=== PATIENT | female | born 1980 | race Two or more races ===

== ENCOUNTER → 2020-07-03 | Outpatient (CLI) | payer SELFPAY | LOC: LAB 12:26 | PROVIDERS: ATTEND Obstetrics & Gynecology | DX: Z01.812 Encounter for preprocedural laboratory examination (principal); Z20.828 Contact with and (suspected) exposure to other viral communicable diseases | CPT/HCPCS: U0003 ==

== ENCOUNTER 2020-07-06 10:44 | Inpatient (IN) | payer SELFPAY ==
[~2020-07-06] VITALS: Ht 154.9 cm; Wt 23.3 kg
[2020-07-06] MEDS: IV RINGERS,LACTATED 1000ML 1,000 ML IV SCH ×2 (11:00→12:00)
[2020-07-06] MEDS: IV NORMAL SALINE 1000ML BAG 1,000 ML IV SCH ×2 (11:43→19:43)
[2020-07-06] MEDS ORDERED: CITRIC ACID/SODIUM CITRATE 30 ML SOLUTION. PO ONE (12:00)
[2020-07-06 12:05] LABS: HEMATOCRIT 37.7 % (36.0-47.0); HEMOGLOBIN 12.8 g/dL (12.0-15.5); RED BLOOD COUNT 4.1 x10^6/uL (3.50-5.40); RED CELL DISTRIBUTION WIDTH 14.8 % (11.5-14.5); WHITE BLOOD COUNT 6.6 x10^3/uL (4.0-11.0)
--- NOTE | 2020-07-06 12:07 | PDOC1 ---
[facility] H&P Date of Admission: Date of Admission: Jul 06, 2020 at 10:44 History of Present Illness: EDC: 07/11/20 LMP: 10/05/19 40y @ 39.2 by L=19 presents for scheduled C/S. The pt was found to have gestational DM. Her FSBS have been well controlled with diet alone. 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 She has been getting wkly CBC since 36wks. Her Plt with her initial OB labs was 125 (01/02/20). The repeat with her GTT was 102 (04/02/20). Over the last few wks they have remained above 80; 89 (06/14/20) -> 98 (06/21/20) -> 83 (06/28/20). PMH: Denies PSH: C/S x 2 Meds: PNV, ASA, pepcid All: NKDA OBHx: 30wk x 1, followed by TC/S x 2 SH: no tob, no EtOH FH: noncontributory Allergies: Coded Allergies: No Known Drug Allergies (Unverified , 07/06/20) Physical Exam: Vital Signs: FHT: 150s +acels/no decels/mLTV Mulat: 8-10 min PE: GENERAL: No apparent distress. Alert and oriented. HEENT: Head normocephalic, atraumatic. NECK: Supple LUNGS: Clear to auscultation. HEART: RRR, S1, S2 present, pulses intact ABDOMEN: Soft, positive bowel sounds. EXTREMITIES: No cyanosis or edema. NEUROLOGIC: Normal speech, normal tone PSYCHIATRIC: Normal affect, normal mood. SKIN: No ulceration. 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
[2020-07-06 13:04] LABS: BILIRUBIN,URINE NEGATIVE (NEG); CLARITY,URINE CLEAR; COLOR,URINE YELLOW; NITRITE,URINE NEGATIVE (NEG); PROTEIN,URINE NEGATIVE (NEG-TRACE); UROBILINOGEN,URINE 0.2 mg/dL (0.2 mg/dL)
[2020-07-06] MEDS ORDERED: MORPHINE PF 10 MG/10 ML AMPUL. ONE (13:09)
[2020-07-06] MEDS ORDERED: fentaNYL PF VIAL 100 MCG/2 ML VIAL ONE (13:10)
[2020-07-06] MEDS ORDERED: OXYTOCIN 10 UNIT/ML VIAL. ONE ×4 (13:10→13:55)
[2020-07-06] MEDS ORDERED: DEXTROSE 50% 25 GM / 50ML DISP.SYRIN. IV ONE ×2 (13:12→13:15)
[2020-07-06] MEDS ORDERED: FAMOTIDINE 20 MG/2 ML VIAL ONE (13:13)
[2020-07-06] MEDS ORDERED: PHENYLEPHRINE in 0.9% NACL PF 1 MG/10 ML SYRINGE. IV ONE (13:13)
[2020-07-06] MEDS ORDERED: ONDANSETRON PF 4 MG/2 ML VIAL. ONE (13:13)
[2020-07-06] MEDS ORDERED: ePHEDrine PF IN SALINE 50 MG/10 ML SYRINGE. IV ONE (13:13)
[2020-07-06 13:20] LABS: BACTERIA,URINE MANY /HPF (0-FEW); RBC,URINE OCC /HPF (0-2)
--- NOTE | 2020-07-06 14:54 | PDOC4 ---
OPERATIVE NOTE: PreOp Dx: 1.) IUP @ 39.2 by L=19, 2.) Prev C/S x 2, 3.) AMA NIPT neg, 4.) A1DM, 5.) Thrombocytopenia likely ITP, 6.) H/o PTD, 7.) Martha NI, 8.) GERD, 9.) GBS neg, 10.) formen ovale anyeurysm, 11.) DPS PostOp Dx: same Procedure: RLTCS/BTL Surgeon: Francis Lindsey Anesthesia: Spinal EBL: 700 cc Fluids: 1700 cc UOP: 200 cc Complications: None Findings: viable male infant delivered at 1355. Wt 9lb 4.6oz. APGARS 9/9. Nml tubes and ovaries. Path: Cord blood, bilateral tubal segments JEFFRY LINDSEY MD Jul 06, 2020 14:54
[2020-07-06] MEDS ORDERED: ACETAMINOPHEN 325 MG TABLET. PO PRN (15:15)
[2020-07-06] MEDS ORDERED: TDaP (Adacel) per PROTOCOL. MC PRN (15:15)
[2020-07-06] MEDS ORDERED: BENZOCAINE 20% TOPICAL AEROSOL SPRAY 57GM CAN. TP PRN (15:15)
[2020-07-06] MEDS ORDERED: diphenhydrAMINE ORAL ELIXIR 12.5 MG/5 ML ML PO PRN (15:15)
[2020-07-06] MEDS ORDERED: oxyCODONE/APAP 5/325 1 TAB TABLET PO PRN (15:15)
[2020-07-06] MEDS ORDERED: 0.9 % SODIUM CHLORIDE 10 ML DISP.SYRIN. IV PRN (15:15)
[2020-07-06] MEDS ORDERED: MMR per PROTOCOL. MC PRN (15:15)
[2020-07-06] MEDS ORDERED: OXYTOCIN 30 UNIT/500 ML PREMIX 500 ML IV PRN (15:15)
--- NOTE | 2020-07-06 15:31 | OP ---
DATE OF SURGERY: 07/06/2020 PREOPERATIVE DIAGNOSES: 1. Intrauterine at 39 weeks and 2 days by LMP equal to a 19-week ultrasound. 2. Previous section x 2. 3. Advanced maternal age. 4. A1 diabetes. 5. Thrombocytopenia, likely idiopathic thrombocytopenic purpura. 6. History of delivery. 7. Varicella nonimmune. 8. Gastroesophageal reflux disease. 9. GBS negative. 10. 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 11. Desires permanent sterilization. POSTOPERATIVE DIAGNOSES: 1. Intrauterine at 39 weeks and 2 days by LMP equal to a 19-week ultrasound. 2. Previous section x 2. 3. Advanced maternal age. 4. A1 diabetes. 5. Thrombocytopenia, likely idiopathic thrombocytopenic purpura. 6. History of delivery. 7. Varicella nonimmune. 8. Gastroesophageal reflux disease. 9. GBS negative. 10. 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 11. Desires permanent sterilization. PROCEDURE: Repeat low transverse with bilateral tubal ligation. SURGEON: Juvencio Lindsey MD ANESTHESIA: Spinal. ESTIMATED BLOOD LOSS: 900 mL. FLUIDS: 1500 mL. URINE OUTPUT: 250 mL. COMPLICATIONS: None. FINDINGS: Viable male delivered at 1355 hours, weighing 9 pounds 4.6 ounces with Apgars of 9 and 9. Normal tubes and ovaries noted with the left fimbria attached to the lower uterine segment from a thin adhesion. PATHOLOGY: Cord blood, cord ABG, bilateral tubal segments and placenta. DESCRIPTION OF PROCEDURE: The patient was taken to the operating room where spinal anesthesia was placed without difficulty. The patient was prepped and draped in normal sterile fashion with a left lateral tilt. A Pfannenstiel skin incision was made through her previous incision and carried down to underlying layer of fascia. The fascia was then nicked in the midline. The fascial incision was then extended laterally with Sierra scissors. The superior aspect of fascial incision was then grasped with Kaitlyn clamps, elevated and underlying rectus muscle was dissected off with the scalpel. Attention was then turned to the inferior aspect of fascial incision, which was grasped with Kaitlyn clamps, elevated and underlying rectus muscle was dissected off with Sierra scissors. At that point, the midline of the rectus muscle was identified and to allow for identification of the peritoneum. The peritoneum was then grasped with 2 hemostats and tented up. Metzenbaum scissors were used to enter sharply. Digital examination of the peritoneal cavity revealed minimal adhesions. At that point, the peritoneal incision was then extended superiorly and inferiorly with good visualization of the bladder with traction and countertraction. The Ervin ring was then placed into the abdomen to better visualize the lower uterine segment. Visualization of the lower uterine segment revealed that the left tube's fimbria was attached to the lower uterine segment near the position where you would make the bladder flap. This was then taken down sharply with Metzenbaum scissors. At that point, Metzenbaum scissors were used to create a bladder flap. The lower uterine segment was then incised in transverse fashion with the scalpel. Head was then flexed and brought to the hysterotomy. With fundal pressure, the head could not be delivered. At that point, attempt was made with the vacuum to deliver the head, the vacuum then popped off. It was felt that additional fundal pressure would have more benefit in the delivery of the head over additional attempts with the vacuum, so the vacuum was abandoned. With the additional fundal pressure, the 's head was delivered. The rest of the was then delivered atraumatically. The nose and mouth were bulb suctioned. The cord was double clamped and cut and the was handed over to the awaiting program consultant. The placenta was then removed manually and the uterus was cleared of all clots and debris. Uterine incision was then repaired with #1 chromic in a running locked fashion. A second layer of the same suture was used to imbricate. Good hemostasis was noted. At that point, the uterus was exteriorized and her left tube was then identified and followed out to the fimbria. At that point, the tube was then grasped with a Jojo clamp. An opening was created in the avascular portion of the mesosalpinx. Two free ties of 0 plain gut were then used to ligate the tube. This 2 cm portion of the tube was then excised and sent to pathology. The edges were made hemostatic with the Bovie. Attention was then turned to the right tube, which was followed out to the fimbria. The Buffalo clamp was then placed on the tube and the Bovie was used to create an opening in the avascular space of the mesosalpinx. At that point, two free ties of plain gut were then used to ligate the tube. This 2 cm segment of the tube was then excised and sent to pathology. The tube was then made hemostatic with the Bovie. At that point, the uterus was returned to the abdomen. Good hemostasis was noted. The gutters were copiously irrigated and cleared of all clots and debris. Reexamination of the tubal sites revealed hemostasis. At that point, the peritoneum was then closed with 2-0 Vicryl in a running fashion. The muscle was reapproximated with 2-0 Vicryl in a running fashion. The fascia was then closed with 0 Vicryl in a running fashion. The skin was then closed with 3-0 Monocryl in a subcuticular manner. The patient tolerated the procedure well. Sponges, laps, and needles were correct x 3. Two grams of Ancef were given prior to the procedure. The patient was taken to recovery room in stable condition. JUVENCIO LINDSEY MD DR: MARYBEL/july JOB#: [id number] / [id number] MOON
[2020-07-06] MEDS: FERROUS SULFATE 325 MG TABLET. PO SCH (17:00)
[2020-07-06 17:55] VITALS: BP 110/68
[2020-07-06] MEDS: KETOROLAC 30 MG/ML VIAL. IV PRN (18:04)
[2020-07-06 18:25] VITALS: BP 103/67
[2020-07-07] MEDS ORDERED: ONDANSETRON PF 4 MG/2 ML VIAL. IVP PRN (01:45)
[2020-07-07] MEDS: KETOROLAC 30 MG/ML VIAL. IV PRN (01:50)
[2020-07-07] MEDS: IV RINGERS,LACTATED 1000ML 1,000 ML IV SCH (01:53)
[2020-07-07] MEDS: IV NORMAL SALINE 1000ML BAG 1,000 ML IV SCH (03:43)
[2020-07-07 07:00] VITALS: BP 97/56
[2020-07-07 07:06] LABS: HEMATOCRIT 27.7 % (36.0-47.0); HEMOGLOBIN 9.2 g/dL (12.0-15.5); MEAN CORPUSCULAR HEMOGLOBIN 30 pg (25-35); MEAN CORPUSCULAR HGB CONC 33 g/dL (31-37); MEAN CORPUSCULAR VOLUME 91 fL (79-100); PLATELET COUNT 75 x10^3/uL (140-400); RED BLOOD COUNT 3.03 x10^6/uL (3.50-5.40); RED CELL DISTRIBUTION WIDTH 15.4 % (11.5-14.5); WHITE BLOOD COUNT 6.6 x10^3/uL (4.0-11.0)
[2020-07-07 07:40] LABS: PLT ESTIMATE DECREASED (ADEQUATE)
[2020-07-07] MEDS ORDERED: PRENATAL MULTIVITAMIN TABLET. PO SCH (09:00)
--- NOTE | 2020-07-07 09:43 | PDOC ---
[employer] PROGRESS NOTE Date of Service: DATE: 07/07/20 TIME: 09:39 Subjective: Pt with good pain control. Tuan PO. Voiding. Minimal lochia. Objective: Vital Signs: Vital Signs Date Time Temp Pulse Resp B/P (MAP) Pulse Ox O2 Delivery O2 Flow Rate FiO2 07/06/20 17:50 Room Air 07/06/20 17:55 98.0 75 16 110/68 (82) 100 98.0 Vital Signs Date Time Temp Pulse Resp B/P (MAP) Pulse Ox O2 Delivery O2 Flow Rate FiO2 07/07/20 07:00 97.5 69 16 97/56 (70) 99 Room Air 97.5 69 Labs: Laboratory Tests Test 07/06/20 11:30 07/06/20 11:32 07/06/20 13:08 07/06/20 15:33 Urine Collection Type Unknown Urine Color Yellow Urine Clarity Clear Urine pH 7.0 (<5.0-8.0) Urine Specific [place] 1.010 (1.000-1.030) Urine Protein Negative mg/dL (NEG-TRACE) Urine Glucose (UA) Negative mg/dL (NEG) Urine Ketones (Stick) Negative mg/dL (NEG) Urine Blood Negative (NEG) Urine Nitrite Negative (NEG) Urine Bilirubin Negative (NEG) Urine Urobilinogen Dipstick 0.2 mg/dL (0.2 mg/dL) Urine Leukocyte Esterase Small (NEG) Urine RBC Occ /HPF (0-2) Urine WBC 11-20 /HPF (0-4) Urine Squamous Epithelial Cells Many /LPF Urine Bacteria Many /HPF (0-FEW) White Blood Count 6.6 x10^3/uL (4.0-11.0) Red Blood Count 4.10 x10^6/uL (3.50-5.40) Hemoglobin 12.8 g/dL (12.0-15.5) Hematocrit 37.7 % (36.0-47.0) Mean Corpuscular Volume 92 fL (79-100) Mean Corpuscular Hemoglobin 31 pg (25-35) Mean Corpuscular Hemoglobin Concent 34 g/dL (31-37) Red Cell Distribution Width 14.8 % (11.5-14.5) H Platelet Count 73 x10^3/uL (140-400) L Treponema pallidum Antibody Nonreactive (Nonreactive) Glucose (Fingerstick) 56 mg/dL (70-99) L 70 mg/dL (70-99) Test 07/07/20 06:25 07/07/20 06:45 Glucose (Fingerstick) 77 mg/dL (70-99) White Blood Count 6.6 x10^3/uL (4.0-11.0) Red Blood Count 3.03 x10^6/uL (3.50-5.40) L Hemoglobin 9.2 g/dL (12.0-15.5) L Hematocrit 27.7 % (36.0-47.0) L Mean Corpuscular Volume 91 fL (79-100) Mean Corpuscular Hemoglobin 30 pg (25-35) Mean Corpuscular Hemoglobin Concent 33 g/dL (31-37) Red Cell Distribution Width 15.4 % (11.5-14.5) H Platelet Count 75 x10^3/uL (140-400) L Platelet Estimate Decreased (ADEQUATE) Giant Platelets Present Laboratory Tests 07/06/20 11:32 07/07/20 06:45 Laboratory Tests 07/07/20 06:45 Physical Exam: GENERAL: No apparent distress. Alert and oriented. HEENT: Head normocephalic, atraumatic. NECK: Supple LUNGS: Clear to auscultation. HEART: RRR, S1, S2 present, pulses intact ABDOMEN: Soft, positive bowel sounds. EXTREMITIES: No cyanosis or edema. NEUROLOGIC: Normal speech, normal tone PSYCHIATRIC: Normal affect, normal mood. SKIN: No ulceration. 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
[2020-07-07 11:00] VITALS: BP 82/52
[2020-07-07] MEDS: FERROUS SULFATE 325 MG TABLET. PO SCH ×2 (11:40→17:59)
[2020-07-07] MEDS: MULTIVITAMIN with MINERAL TABLET. PO SCH (11:41)
[2020-07-07] MEDS: oxyCODONE/APAP 5/325 1 TAB TABLET PO PRN ×2 (11:41→18:00)
[2020-07-07] MEDS: IBUPROFEN 400 MG TABLET. PO PRN ×2 (11:41→20:44)
[2020-07-07] MEDS: DOCUSATE SODIUM 100 MG CAPSULE. PO PRN ×2 (11:42→17:59)
[2020-07-07 15:00] VITALS: BP 91/46
[2020-07-07 20:46] VITALS: BP 94/60
[2020-07-07 20:52] VITALS: BP 94/60
[2020-07-08] MEDS: oxyCODONE/APAP 5/325 1 TAB TABLET PO PRN ×3 (02:44→12:46)
[2020-07-08 03:05] VITALS: BP 91/54
[2020-07-08] MEDS: IBUPROFEN 400 MG TABLET. PO PRN ×2 (06:21→12:46)
[2020-07-08 06:24] VITALS: BP 99/63
[2020-07-08 07:28] LABS: HEMATOCRIT 29.6 % (36.0-47.0); HEMOGLOBIN 9.9 g/dL (12.0-15.5); RED BLOOD COUNT 3.18 x10^6/uL (3.50-5.40); RED CELL DISTRIBUTION WIDTH 15.7 % (11.5-14.5); WHITE BLOOD COUNT 6.8 x10^3/uL (4.0-11.0)
[2020-07-08] MEDS: MULTIVITAMIN with MINERAL TABLET. PO SCH (08:38)
[2020-07-08] MEDS: DOCUSATE SODIUM 100 MG CAPSULE. PO PRN (08:38)
[2020-07-08] MEDS: FERROUS SULFATE 325 MG TABLET. PO SCH (08:38)
[2020-07-08] MEDS ORDERED: FLU VACC QS 2020-21(6MOS+)/PF 0.5 ML SYRINGE. VAX IM ONE (09:00)
--- NOTE | 2020-07-08 10:47 | PDOC ---
[employer] PROGRESS NOTE Date of Service: DATE: 07/08/20 TIME: 10:45 Subjective: Pt with good pain control. Tuan PO. Voiding. Minimal lochia. Objective: Vital Signs: Vital Signs Date Time Temp Pulse Resp B/P (MAP) Pulse Ox O2 Delivery O2 Flow Rate FiO2 07/07/20 07:00 97.5 69 16 97/56 (70) 99 Room Air 97.5 69 Vital Signs Date Time Temp Pulse Resp B/P (MAP) Pulse Ox O2 Delivery O2 Flow Rate FiO2 07/08/20 08:39 16 Room Air 07/08/20 06:24 98.3 65 99/63 (75) 96 98.3 Labs: Laboratory Tests Test 07/08/20 06:35 White Blood Count 6.8 x10^3/uL (4.0-11.0) Red Blood Count 3.18 x10^6/uL (3.50-5.40) L Hemoglobin 9.9 g/dL (12.0-15.5) L Hematocrit 29.6 % (36.0-47.0) L Mean Corpuscular Volume 93 fL (79-100) Mean Corpuscular Hemoglobin 31 pg (25-35) Mean Corpuscular Hemoglobin Concent 33 g/dL (31-37) Red Cell Distribution Width 15.7 % (11.5-14.5) H Platelet Count 82 x10^3/uL (140-400) L Laboratory Tests 07/08/20 06:35 Laboratory Tests 07/08/20 06:35 Physical Exam: GENERAL: No apparent distress. Alert and oriented. HEENT: Head normocephalic, atraumatic. NECK: Supple LUNGS: Clear to auscultation. HEART: RRR, S1, S2 present, pulses intact ABDOMEN: Soft, positive bowel sounds. EXTREMITIES: No cyanosis or edema. NEUROLOGIC: Normal speech, normal tone PSYCHIATRIC: Normal affect, normal mood. SKIN: No ulceration. FFNT below umb Inc: C/D/I no C/C/E Assessment & Plan: A/P 40y POD #2 s/p RLTCS/BTL 1.) PO - doing well 2.) A1DM 3.) Thrombocytopenia likely ITP, Plt stable in mid 70's 4.) Anemia - Hgb 12.8 -> 9.2, asx, on Fe 5.) Martha NI 6.) GERD 7.) formen ovale anyeurysm peds made aware of [facility] recommendation for postdelivery echo 8.) TDAP given 05/07/20 9.) D/c home JEFFRY LINDSEY MD Jul 08, 2020 10:47
[2020-07-08] MEDS ORDERED: OXYC1TAB15 PO (10:53)
[2020-07-08] MEDS ORDERED: DOCU-109 PO (10:53)
[2020-07-08] MEDS ORDERED: IBUP-1060 PO (10:53)
[2020-07-08] MEDS ORDERED: FERR325T14 PO (10:58)
[2020-07-08 12:40] VITALS: BP 92/58
--- NOTE | 2020-07-08 13:15 | NUR ---
Discharge and follow up instructions reviewed and given to pt and her S/O. S/O interpreted the things written in [place]. Pt denies any questions or complaints at this time. Pt taken out of the hospital per w/c with her S/O and her by her side.
--- NOTE | 2020-07-08 15:27 | DS ---
DATE OF DISCHARGE: 07/08/2020 ADMISSION DIAGNOSES: 1. Intrauterine at 39 weeks and 2 days by LMP equal to 19-week ultrasound. 2. Previous section x 2. 3. Advanced maternal age with a low risk NIPT. 4. A1 diabetes. 5. Thrombocytopenia, likely related to idiopathic thrombocytopenic purpura. 6. History of delivery. 7. Varicella nonimmune. 8. Gastroesophageal reflux disease. 9. GBS negative. 10. Possible foramen ovale aneurysm. 11. Desires permanent sterilization. DISCHARGE DIAGNOSES: 1. Intrauterine at 39 weeks and 2 days by LMP equal to 19-week ultrasound. 2. Previous section x 2. 3. Advanced maternal age with a low risk NIPT. 4. A1 diabetes. 5. Thrombocytopenia, likely related to idiopathic thrombocytopenic purpura. 6. History of delivery. 7. Varicella nonimmune. 8. Gastroesophageal reflux disease. 9. GBS negative. 10. Possible foramen ovale aneurysm. 11. Desires permanent sterilization. PROCEDURE: Repeat lower transverse with bilateral tubal ligation. BRIEF HOSPITAL COURSE: The patient is a 40-year-old 4, para 2-1-0-3 who presented to Labor and Delivery at 39 weeks and 2 days by LMP equal to 19-week ultrasound for a scheduled . Early in the , the patient was found to have gestational diabetes. Throughout the , the patient reported good control. The patient also was diagnosed with thrombocytopenia early in and as subsequent platelets were drawn they continued to drop. The patient was thought to have thrombocytopenia secondary to ITP. Since about 36 weeks, the patient had been getting weekly CBCs to monitor her platelets. On admission, her platelets were found to be 73. The patient underwent scheduled . See operative note for full detail. By day #2, the patient was meeting all discharge criteria and was subsequently discharged home. Of note, her fasting blood sugar on the morning after her surgery was normal. The patient's hemoglobin preoperatively was found to be 12.8 and was found to be 9.2 on postoperative day #1. Her platelets remained stable, going from 73 prior to the surgery to 75, then 82 on the subsequent postoperative days. DISCHARGE INSTRUCTIONS: The patient was told not to lift anything greater than 20 pounds, have pelvic rest for 6 weeks, and not to drive on narcotics. CALL IF: The patient was to call if she had fevers, chills, nausea, vomiting, abdominal pain or any additional questions or concerns. DISCHARGE MEDICATIONS: The patient was given a prescription for Percocet 5, 10 pills; Motrin 800 mg, 30 pills; Colace 100 mg 30 pills and ferrous sulfate 325 mg 30 pills. DISCHARGE APPOINTMENTS: The patient was told to make an appointment in 1 week's time at [facility] on afternoon for an incision check. JEFFRY LINDSEY MD DR: MARYBEL/july JOB#: [id number] / [id number] MOON
== END 2020-07-08 13:15 | disposition home or self-care (01) | DRG 784 ==
LOC: 3 SO LND 10:44 → 3 NORTH 17:45
PROVIDERS: ADMIT Obstetrics & Gynecology; ATTEND Obstetrics & Gynecology
PROC: 10D00Z1 Extraction of Products of Conception, Low, Open Approach (ICD-10-PCS; principal; 2020-07-06)
PROC: 0UB70ZZ Excision of Bilateral Fallopian Tubes, Open Approach (ICD-10-PCS; 2020-07-06)
DX: O24.420 Gestational diabetes mellitus in childbirth, diet controlled (principal); O99.12 Other diseases of the blood and blood-forming organs and certain disorders involving the immune mechanism complicating childbirth; D69.3 Immune thrombocytopenic purpura; O98.52 Other viral diseases complicating childbirth; O34.211 Maternal care for low transverse scar from previous cesarean delivery; O99.62 Diseases of the digestive system complicating childbirth; K21.9 Gastro-esophageal reflux disease without esophagitis; D69.59 Other secondary thrombocytopenia; Z30.2 Encounter for sterilization; Z37.0 Single live birth; Z3A.39 39 weeks gestation of pregnancy; O99.02 Anemia complicating childbirth; D64.9 Anemia, unspecified
CPT/HCPCS: 36415; 81001; 82962; 85027; 86592; 86850; 86900; 86901; 87086; 90471; 90686; J0690; J1885; J2274; J2370; J2405; J2590; J3010; J3490; J7120; G0378